=== PATIENT | female | born 1970 | race Caucasian/White ===

== ENCOUNTER 2023-01-13 09:46 | Emergency (ER) | payer OTHER ==
[~2023-01-13] VITALS: Ht 177.8 cm; Wt 94.5 kg
[2023-01-13 10:04] VITALS: BP 117/81; TEMP 98.4
[2023-01-13] MEDS ORDERED: NORCO 325 MG-51 TAB PO (11:01)
[2023-01-13 11:14] VITALS: PULSE 72
== END 2023-01-13 11:14 | disposition home or self-care (01) ==
LOC: COL.ER 09:46
DX: S60.221A Contusion of right hand, initial encounter (principal); Z95.1 Presence of aortocoronary bypass graft; Z95.5 Presence of coronary angioplasty implant and graft; Z79.01 Long term (current) use of anticoagulants; W22.8XXA Striking against or struck by other objects, initial encounter; Y92.59 Other trade areas as the place of occurrence of the external cause; Y99.0 Civilian activity done for income or pay

== ENCOUNTER 2023-09-04 10:22 | Emergency (ER) | payer BC ==
[~2023-09-04] VITALS: Ht 177.8 cm; Wt 94.5 kg
[~2023-09-04 10:22] MED LIST: NORCO 325 MG-51 TAB PO
[2023-09-04 10:35] VITALS: TEMP 97.8
[2023-09-04] MEDS ORDERED: NORCO 325 MG-51 TAB PO (11:01)
[2023-09-04] MEDS ORDERED: ANTIVERT 25MG25 MG PO (11:01)
[2023-09-04 11:18] VITALS: BP 154/88; PULSE 94
== END 2023-09-04 11:10 | disposition home or self-care (01) ==
LOC: COL.ER 10:22
DX: R42 Dizziness and giddiness (principal); R51.9 Headache, unspecified
CPT/HCPCS: J1885